=== PATIENT | male | born 1940 | race Caucasian/White ===

== ENCOUNTER 2017-03-04 12:29 | Inpatient (IN) | payer MEDICARE, BC ==
[2017-03-04] MEDS ORDERED: Ondansetron 4 MG Tab.DIS PO PRN (15:32)
[2017-03-04] MEDS ORDERED: Sodium Chloride 0.9% 10 ML Syringe FLUSH PRN (15:32)
[2017-03-04] MEDS ORDERED: Morphine 2 MG/ML Syringe IVPUSH PRN (15:32)
[2017-03-04] MEDS ORDERED: Nitroglycerin 0.4 MG Tab.SL SL PRN (15:40)
[2017-03-04] MEDS ORDERED: Clopidogrel 75 MG Tab PO ONE (15:40)
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
[2017-03-04] MEDS: Lactated Ringers 1,000 ML IV SCH (16:35)
[2017-03-04] MEDS: Isosorbide Mononitrate 30 MG Tab.ER PO SCH (16:35)
[2017-03-04] MEDS: Insulin Aspart 100 Units/ML 3 ML Pen SUBCUT SCH (18:37)
[2017-03-04] MEDS ORDERED: Latanoprost 0.005% Ophth Soln 2.5 ML Bottle EYEBOTH SCH (21:00)
[2017-03-04] MEDS: levETIRAcetam 500 MG Tab PO SCH (21:13)
[2017-03-04] MEDS: Sodium Chloride 5% Ophth Soln 15 ML Bottle EYEBOTH SCH ×2 (21:13→21:21)
[2017-03-04] MEDS: Erythromycin Base 0.5% Ophth Oint 3.5 GM Tube EYEBOTH SCH (21:13)
[2017-03-04] MEDS: LORazepam 2 MG/ML MDV IVPUSH PRN (23:02)
--- NOTE | 2017-03-05 00:07 | ER ---
DATE SEEN: 03/04/2017 After final discussion with the family and his , she felt very strongly that she did not want him to go to [place] to have his stent, cardiovascular workup, or angiography performed. The patient is to be hospitalize here. Status discussed with Dr. Bahena again after she had made a brief decision to send to [place] and she feels comfortable, she and her four children had a long discussion about plans and what should be done with Mr. Whitney should he have deteriorations in his health. They all agreed that he is a poor quality of life and there would be nothing that could be added to his quality of life by performing other procedures. The patient's feels comfortable with this decision. The patient will be admitted. The patient's status discussed with Dr. Bahena. The patient will be placed on telemetry, will not be going to intensive care. Dr. Bahena to write orders. /[id number] ARIADNE/INES
[2017-03-05] MEDS: Lactated Ringers 1,000 ML IV SCH ×3 (00:44→22:16)
[2017-03-05] MEDS: LORazepam 2 MG/ML MDV IVPUSH PRN (01:47)
--- NOTE | 2017-03-05 08:38 | PCM.PN ---
- General Info Date of Service: 03/05/17 Admission Dx/Problem (Free Text): Patient does not communicate well. His states he was agitated last night and the medication I gave him made him hallucinate. He did not rest well according to the . No chest pain or shortness of breath but can be elicited by the . - Patient Data Vitals - most recent: Last Vital Signs Temp 99.5 F 03/05/17 03:00 Pulse 79 03/05/17 03:00 Resp 20 03/05/17 03:00 BP 137/69 03/05/17 03:00 Pulse Ox 95 03/05/17 03:00 Weight - most recent: 186 lb 9.6 oz I&O - last 24 hours: Intake & Output 03/04/17 03/05/17 03/05/17 22:59 06:59 14:59 Intake Total 1320 1096 Balance 1320 1096 Lab Results last 24 hrs: Laboratory Results - last 24 hr 03/04/17 03/04/17 03/04/17 Range/Units 18:32 21:00 21:08 WBC (4.5-12.0) X10-3/uL RBC (4.30-5.75) x10(6)uL Hgb (11.5-15.5) g/dL Hct (30.0-51.3) % MCV (80-96) fL MCH (27.7-33.6) pg MCHC (32.2-35.4) g/dL RDW (11.5-15.5) % Plt Count (125-369) X10(3)uL MPV (7.4-10.4) fL Neut % (Auto) (46-82) % Lymph % (Auto) (13-37) % [place] % (Auto) (4-12) % Eos % (Auto) (1.0-5.0) % Baso % (Auto) (0-2) % Neut # (Auto) (1.6-8.3) # Lymph # (Auto) (0.6-5.0) # [place] # (Auto) (0.0-1.3) # Eos # (Auto) (0.0-0.8) # Baso # (Auto) (0.0-0.2) # Sodium (135-145) mmol/L Potassium (3.5-5.3) mmol/L Chloride (100-110) mmol/L Carbon Dioxide (23-29) mmol/L BUN (8-23) mg/dL Creatinine (0.6-1.3) mg/dL Est Cr Clr Drug Dosing Estimated GFR (MDRD) (>60) BUN/Creatinine Ratio (9-20) Glucose (80-116) mg/dL POC Glucose 207 H D 260 H (80-116) mg/dL Calcium (8.6-10.2) mg/dL Total Bilirubin (0.1-1.3) mg/dL AST (5-27) IU/L ALT (14-26) IU/L Alkaline Phosphatase (56-112) IU/L Troponin I 13.12 H* (0.02-0.06) NG/ML Total Protein (6.0-8.0) g/dL Albumin (3.2-4.6) g/dL Globulin g/dL Albumin/Globulin Ratio 03/05/17 03/05/17 03/05/17 Range/Units 06:35 06:35 06:35 WBC 10.8 (4.5-12.0) X10-3/uL RBC 4.21 L (4.30-5.75) x10(6)uL Hgb 12.4 (11.5-15.5) g/dL Hct 36.8 (30.0-51.3) % MCV 87.4 (80-96) fL MCH 29.5 (27.7-33.6) pg MCHC 33.7 (32.2-35.4) g/dL RDW 11.9 (11.5-15.5) % Plt Count 177 (125-369) X10(3)uL MPV 9.6 (7.4-10.4) fL Neut % (Auto) 71.9 (46-82) % Lymph % (Auto) 15.9 (13-37) % [place] % (Auto) 11.0 (4-12) % Eos % (Auto) 1 (1.0-5.0) % Baso % (Auto) 0 (0-2) % Neut # (Auto) 7.8 (1.6-8.3) # Lymph # (Auto) 1.7 (0.6-5.0) # Rad[place] # (Auto) 1.2 (0.0-1.3) # Eos # (Auto) 0.1 (0.0-0.8) # Baso # (Auto) 0.0 (0.0-0.2) # Sodium 136 (135-145) mmol/L Potassium 3.7 (3.5-5.3) mmol/L Chloride 103 (100-110) mmol/L Carbon Dioxide 28 (23-29) mmol/L BUN 18 (8-23) mg/dL Creatinine 0.8 (0.6-1.3) mg/dL Est Cr Clr Drug Dosing TNP Estimated GFR (MDRD) > 60 (>60) BUN/Creatinine Ratio 22.5 H (9-20) Glucose 199 H (80-116) mg/dL POC Glucose (80-116) mg/dL Calcium 8.2 L (8.6-10.2) mg/dL Total Bilirubin 1.2 (0.1-1.3) mg/dL AST 37 H D (5-27) IU/L ALT 16 D (14-26) IU/L Alkaline Phosphatase 58 (56-112) IU/L Troponin I 11.62 H* (0.02-0.06) NG/ML Total Protein 6.0 (6.0-8.0) g/dL Albumin 3.2 (3.2-4.6) g/dL Globulin 2.8 g/dL Albumin/Globulin Ratio 1.1 //17 Range/Units 06:56 WBC (4.5-12.0) X10-3/uL RBC (4.30-5.75) x10(6)uL Hgb (11.5-15.5) g/dL Hct (30.0-51.3) % MCV (80-96) fL MCH (27.7-33.6) pg MCHC (32.2-35.4) g/dL RDW (11.5-15.5) % Plt Count (125-369) X10(3)uL MPV (7.4-10.4) fL Neut % (Auto) (46-82) % Lymph % (Auto) (13-37) % [place] % (Auto) (4-12) % Eos % (Auto) (1.0-5.0) % Baso % (Auto) (0-2) % Neut # (Auto) (1.6-8.3) # Lymph # (Auto) (0.6-5.0) # [place] # (Auto) (0.0-1.3) # Eos # (Auto) (0.0-0.8) # Baso # (Auto) (0.0-0.2) # Sodium (135-145) mmol/L Potassium (3.5-5.3) mmol/L Chloride (100-110) mmol/L Carbon Dioxide (23-29) mmol/L BUN (8-23) mg/dL Creatinine (0.6-1.3) mg/dL Est Cr Clr Drug Dosing Estimated GFR (MDRD) (>60) BUN/Creatinine Ratio (9-20) Glucose (80-116) mg/dL POC Glucose 179 H D (80-116) mg/dL Calcium (8.6-10.2) mg/dL Total Bilirubin (0.1-1.3) mg/dL AST (5-27) IU/L ALT (14-26) IU/L Alkaline Phosphatase (56-112) IU/L Troponin I (0.02-0.06) NG/ML Total Protein (6.0-8.0) g/dL Albumin (3.2-4.6) g/dL Globulin g/dL Albumin/Globulin Ratio Med Orders - Current: Current Medications Cholecalciferol (Vitamin D3) 2,000 units PO DAILY [facility] Clopidogrel Bisulfate (Plavix) 75 mg PO DAILY [facility] Erythromycin (Erythromycin 0.5% Ophth Oint) 0 gm EYEBOTH BEDTIME [facility] Last Admin: 03/04/17 21:13 Dose: 3.5 gm Lactated Ringer's (Ringers, Lactated) 1,000 mls @ 125 mls/hr IV ASDIRECTED [facility] Last Admin: 03/05/17 00:44 Dose: 125 mls/hr Insulin Aspart (Novolog) 0 unit SUBCUT TIDMEALS [facility] PRN Reason: Protocol Last Admin: 03/04/17 18:37 Dose: 4 units Insulin Aspart (Novolog) 8 unit SUBCUT TIDAC [facility] Isosorbide Mononitrate (Imdur) 30 mg PO DAILY [facility] Last Admin: 03/04/17 16:35 Dose: 30 mg Latanoprost (Xalatan 0.005% Ophth Soln) 0 ml EYEBOTH BEDTIME [facility] Levetiracetam (Keppra) 500 mg PO BID [facility] Last Admin: 03/04/17 21:13 Dose: 500 mg Lorazepam (Ativan) 0.5 mg IVPUSH Q2H PRN PRN Reason: Allergies Last Admin: 03/05/17 01:47 Dose: 0.5 mg Losartan Potassium (Cozaar) 100 mg PO DAILY [facility] Melatonin (Melatonin) 6 mg PO BEDTIME [facility] Morphine Sulfate (Morphine) 2 mg IVPUSH Q2H PRN PRN Reason: Pain (severe 7-10) Last Admin: 03/05/17 07:56 Dose: 2 mg Ondansetron HCl (Zofran Odt) 4 mg PO Q4H PRN PRN Reason: nausea, able to take PO Sodium Chloride (Saline Flush) 10 ml FLUSH ASDIRECTED PRN PRN Reason: Keep Vein Open Sodium Chloride (Adair 128 5% Ophth Soln) 0 ml EYEBOTH TID [facility] Last Admin: 03/04/17 21:21 Dose: Not Given Spironolactone (Aldactone) 25 mg PO DAILY [facility] Discontinued Medications Clopidogrel Bisulfate (Plavix) 300 mg PO ONETIME ONE Stop: 03/04/17 15:41 Last Admin: 03/04/17 16:34 Dose: 300 mg Latanoprost (Xalatan 0.005% Ophth Soln) 0 ml EYEBOTH BEDTIME [facility] Last Admin: 03/04/17 21:14 Dose: 1 drop Nitroglycerin (Nitrostat) 0.4 mg SL Q5M PRN PRN Reason: Chest Pain Stop: 03/04/17 15:51 - Exam General: alert, cooperative. No: oriented, no acute distress Lungs: Clear to auscultation, Normal respiratory effort. No: Crackles, Rales, Rhonchi Cardiovascular: Regular Rate, Regular Rhythm, Murmurs Extremities: no edema Psy/Mental Status: alert - Problem List & Annotations (1) STEMI (ST elevation myocardial infarction) SNOMED Code(s): 672538379 Code(s): I21.3 - ST ELEVATION (STEMI) MYOCARDIAL INFARCTION OF [facility] SITE Status: Acute Current Visit: Yes Qualifiers: Involved coronary artery: unspecified coronary artery Qualified Code(s): I21.3 - ST elevation (STEMI) myocardial infarction of unspecified site (2) Palliative care status SNOMED Code(s): 541169262 Code(s): Z51.5 - ENCOUNTER FOR PALLIATIVE CARE Status: Acute Current Visit: Yes (3) Seizure SNOMED Code(s): 97937242 Code(s): R56.9 - UNSPECIFIED CONVULSIONS Status: Acute Current Visit: No Annotation/Comment:: Started Keppra 500mg po bid on 08/04/16. For outpt FU with his Neurologist. For EEG as an outpt. (4) Dementia SNOMED Code(s): 55907614 Code(s): F03.90 - UNSPECIFIED DEMENTIA WITHOUT BEHAVIORAL DISTURBANCE Status: Chronic Current Visit: No Qualifiers: Dementia type: Alzheimer's disease Alzheimer's disease onset: late-onset Dementia behavioral disturbance: without behavioral disturbance Qualified Code (s): G30.1 - Alzheimer's disease with late onset; F02.80 - Dementia in other diseases classified elsewhere without behavioral disturbance Annotation/Comment:: Not on any medications. (5) Type 2 diabetes mellitus SNOMED Code(s): 34925440 Code(s): E11.9 - TYPE 2 DIABETES MELLITUS WITHOUT COMPLICATIONS Status: Chronic Current Visit: No Qualifiers: Diabetes mellitus complication status: without complication Diabetes mellitus terminal manager insulin use: with terminal manager use Qualified Code(s): E11.9 - Type 2 diabetes mellitus without complications; Z79.4 - exterminator helper termite (current) use of insulin Annotation/Comment:: HbA1C was 9.1% on 08/04/16. Continue Insulin Aspart pre- meals and Detemir. Continue diabetic diet. - Problem List Review Problem List Initiated/Reviewed/Updated: Yes - My Orders Last 24 Hours: My Active Orders 03/04/17 15:32 Patient Status [ADT] Routine Bedrest Bedside Commode [RC] ASDIRECTED Blood Glucose Check, Bedside [RC] 08,12,17,21 Oxygen Therapy [RC] PRN Up With Assistance [RC] ASDIRECTED VTE/DVT Education [RC] Per Unit Routine Vital Signs [RC] Q4H OT Evaluation and Treatment [CONS] Routine PT Evaluation and Treatment [CONS] Routine Morphine 2 mg IVPUSH Q2H PRN Ondansetron [Zofran ODT] 4 mg PO Q4H PRN Sodium Chloride 0.9% [Saline Flush] 10 ml FLUSH ASDIRECTED PRN Peripheral IV Insertion Adult [OM.PC] Routine Resuscitation Status Routine 03/04/17 15:34 Cardiac Monitoring [RC] 08,16,00 Sequential Compression Device [OM.PC] Per Unit Routine 03/04/17 15:45 Isosorbide Mononitrate [Imdur] 30 mg PO DAILY Lactated Ringers [Ringers, Lactated] 1,000 ml IV ASDIRECTED 03/04/17 18:00 Insulin Aspart [NovoLOG] See Protocol SUBCUT TIDMEALS 03/04/17 20:00 EKG 12 Lead [EK] Routine 03/04/17 21:00 Erythromycin Base [Erythromycin 0.5% Ophth Oint] 0 gm EYEBOTH BEDTIME Sodium Chloride 5% [Adair 128 5% Ophth Soln] 0 ml EYEBOTH TID levETIRAcetam [Keppra] 500 mg PO BID 03/04/17 Dinner Clear Liquid Diet [DIET] 03/05/17 06:00 EKG 12 Lead [EK] Routine 03/05/17 07:42 Latanoprost [Xalatan 0.005% Ophth Soln] 0 ml EYEBOTH BEDTIME 03/05/17 09:00 Cholecalciferol (Vitamin D3) [Vitamin D3] 2,000 units PO DAILY Losartan [Cozaar] 100 mg PO DAILY Spironolactone [Aldactone] 25 mg PO DAILY - Plan Plan:: 1. Stop Ativan and use it again due to agitation hallucinations. 2. Melatonin at at bedtime and then Remeron daily at bedtime when necessary if the melatonin doesn't work. 3. PT/OT ordered. Discussed this with the . 4. Start a beta noelle today. 5. would like to hold the spironolactone and see if his legs swell up. 6. states that his regular doctor as talked about hospice in the past. She would like a hospice consult. 7. Troponin and EKG in a.m. 8. Continue telemetry. 9. Stop clear liquids and advance to regular diet.
[2017-03-05] MEDS ORDERED: Mirtazapine 15 MG Tab PO PRN (08:40)
[2017-03-05] MEDS ORDERED: Spironolactone 25 MG Tab PO SCH (09:00)
[2017-03-05] MEDS ORDERED: traMADol 50 MG Tab PO PRN (09:43)
[2017-03-05] MEDS: Clopidogrel 75 MG Tab PO SCH (09:49)
[2017-03-05] MEDS: levETIRAcetam 500 MG Tab PO SCH ×2 (09:49→21:07)
[2017-03-05] MEDS: Isosorbide Mononitrate 30 MG Tab.ER PO SCH (09:49)
[2017-03-05] MEDS: Cholecalciferol (Vitamin D3) 1,000 Unit Tab PO SCH (09:49)
[2017-03-05] MEDS: Metoprolol Tartrate 25 MG Tab PO SCH ×2 (09:50→21:09)
[2017-03-05] MEDS: Losartan 100 MG Tab PO SCH (09:50)
[2017-03-05] MEDS: Insulin Aspart 100 Units/ML 3 ML Pen SUBCUT SCH ×5 (09:50→17:17)
[2017-03-05] MEDS: Sodium Chloride 5% Ophth Soln 15 ML Bottle EYEBOTH SCH (09:57)
--- NOTE | 2017-03-05 10:35 | CR ---
INDICATION: Trauma. RIGHT KNEE: Three views of the right knee revealed mild hypertrophic degenerative changes at the intercondylar spines and patellofemoral joint. There is also narrowing of the medial femorotibial joint space of moderate to moderately severe degree. A definite fracture or dislocation or joint effusion was not identified. Arterial calcifications are noted in the posterior arteries. IMPRESSION: 1. Osteoarthritis, medial femorotibial joint space narrowing. 2. ASD. 3. No acute fracture or dislocation. MTDD
[2017-03-05] MEDS ORDERED: Melatonin 3 MG Tab PO SCH (21:00)
[2017-03-05] MEDS: Melatonin 3 MG Tab PO SCH (21:07)
[2017-03-05] MEDS: Erythromycin Base 0.5% Ophth Oint 3.5 GM Tube EYEBOTH SCH (21:08)
[2017-03-05] MEDS: Latanoprost 0.005% Ophth Soln 2.5 ML Bottle EYEBOTH SCH (21:09)
[2017-03-06] MEDS: Insulin Aspart 100 Units/ML 3 ML Pen SUBCUT SCH ×3 (08:13→17:59)
[2017-03-06] MEDS: Metoprolol Tartrate 25 MG Tab PO SCH ×2 (08:21→21:27)
[2017-03-06] MEDS: Clopidogrel 75 MG Tab PO SCH (08:21)
[2017-03-06] MEDS: Losartan 100 MG Tab PO SCH (08:21)
[2017-03-06] MEDS: levETIRAcetam 500 MG Tab PO SCH ×2 (08:21→21:28)
[2017-03-06] MEDS: Cholecalciferol (Vitamin D3) 1,000 Unit Tab PO SCH (08:21)
--- NOTE | 2017-03-06 08:21 | PCM.PN ---
- General Info Date of Service: 03/06/17 Admission Dx/Problem (Free Text): Patient very sleepy this morning. He wakes up and asked if these any pain. He shakes his head no. He has a history dementia and does not speak much. His is not here this a.m. as of yet. So I'm not able to get any further history. - Patient Data Vitals - most recent: Last Vital Signs Temp 99.3 F 03/06/17 00:05 Pulse 75 03/06/17 04:20 Resp 18 03/06/17 04:20 BP 130/69 03/06/17 04:20 Pulse Ox 93 L 03/06/17 04:20 Weight - most recent: 186 lb 9.6 oz I&O - last 24 hours: Intake & Output 03/05/17 03/06/17 03/06/17 22:59 06:59 14:59 Intake Total 104 636 Balance 104 636 Lab Results last 24 hrs: Laboratory Results - last 24 hr 03/05/17 03/05/17 03/05/17 Range/Units 11:40 13:02 17:15 POC Glucose 207 H 196 H 113 D (80-116) mg/dL Troponin I (0.02-0.06) NG/ML 03/05/17 03/06/17 Range/Units 21:04 06:30 POC Glucose 118 H (80-116) mg/dL Troponin I 5.24 H* (0.02-0.06) NG/ML Med Orders - Current: Current Medications Cholecalciferol (Vitamin D3) 2,000 units PO DAILY [facility] Last Admin: 03/05/17 09:49 Dose: 2,000 units Clopidogrel Bisulfate (Plavix) 75 mg PO DAILY [facility] Last Admin: 03/05/17 09:49 Dose: 75 mg Erythromycin (Erythromycin 0.5% Ophth Oint) 0 gm EYEBOTH BEDTIME [facility] Last Admin: 03/05/17 21:08 Dose: 1 applic Lactated Ringer's (Ringers, Lactated) 1,000 mls @ 75 mls/hr IV ASDIRECTED [facility] Last Admin: 03/05/17 22:16 Dose: 75 mls/hr Insulin Aspart (Novolog) 0 unit SUBCUT TIDMEALS [facility] PRN Reason: Protocol Last Admin: 03/06/17 08:13 Dose: 2 units Isosorbide Mononitrate (Imdur) 30 mg PO DAILY [facility] Last Admin: 03/05/17 09:49 Dose: 30 mg Latanoprost (Xalatan 0.005% Ophth Soln) 0 ml EYEBOTH BEDTIME [facility] Last Admin: 03/05/17 21:09 Dose: 1 drop Levetiracetam (Keppra) 500 mg PO BID [facility] Last Admin: 03/05/17 21:07 Dose: 500 mg Losartan Potassium (Cozaar) 100 mg PO DAILY [facility] Last Admin: 03/05/17 09:50 Dose: 100 mg Melatonin (Melatonin) 9 mg PO BEDTIME [facility] Last Admin: 03/05/17 21:07 Dose: 9 mg Metoprolol Tartrate (Lopressor) 12.5 mg PO Q12H [facility] Last Admin: 03/05/17 21:09 Dose: 12.5 mg Mirtazapine (Remeron) 7.5 mg PO BEDTIME PRN PRN Reason: Insomnia Morphine Sulfate (Morphine) 2 mg IVPUSH Q2H PRN PRN Reason: Pain (severe 7-10) Last Admin: 03/05/17 07:56 Dose: 2 mg Sodium Chloride (Saline Flush) 10 ml FLUSH ASDIRECTED PRN PRN Reason: Keep Vein Open Tramadol HCl (Ultram) 50 mg PO Q4H PRN PRN Reason: Pain Last Admin: 03/05/17 10:12 Dose: 50 mg Discontinued Medications Clopidogrel Bisulfate (Plavix) 300 mg PO ONETIME ONE Stop: 03/04/17 15:41 Last Admin: 03/04/17 16:34 Dose: 300 mg Insulin Aspart (Novolog) 8 unit SUBCUT TIDAC [facility] Last Admin: 03/05/17 12:46 Dose: Not Given Latanoprost (Xalatan 0.005% Ophth Soln) 0 ml EYEBOTH BEDTIME [facility] Last Admin: 03/04/17 21:14 Dose: 1 drop Lorazepam (Ativan) 0.5 mg IVPUSH Q2H PRN PRN Reason: Allergies Last Admin: 03/05/17 01:47 Dose: 0.5 mg Melatonin (Melatonin) 6 mg PO BEDTIME [facility] Nitroglycerin (Nitrostat) 0.4 mg SL Q5M PRN PRN Reason: Chest Pain Stop: 03/04/17 15:51 Ondansetron HCl (Zofran Odt) 4 mg PO Q4H PRN PRN Reason: nausea, able to take PO Sodium Chloride ([place] 128 5% Ophth Soln) 0 ml EYEBOTH TID [facility] Last Admin: 03/05/17 09:57 Dose: Not Given Spironolactone (Aldactone) 25 mg PO DAILY [facility] - Exam General: alert, cooperative. No: oriented Lungs: Clear to auscultation, Normal respiratory effort Cardiovascular: Regular Rate, Regular Rhythm - Problem List & Annotations (1) STEMI (ST elevation myocardial infarction) SNOMED Code(s): 100225482 Code(s): I21.3 - ST ELEVATION (STEMI) MYOCARDIAL INFARCTION OF UNSP SITE Status: Acute Current Visit: Yes Qualifiers: Involved coronary artery: unspecified coronary artery Qualified Code(s): I21.3 - ST elevation (STEMI) myocardial infarction of unspecified site (2) Palliative care status SNOMED Code(s): 096578274 Code(s): Z51.5 - ENCOUNTER FOR PALLIATIVE CARE Status: Acute Current Visit: Yes (3) Seizure SNOMED Code(s): 04505472 Code(s): R56.9 - UNSPECIFIED CONVULSIONS Status: Acute Current Visit: No Annotation/Comment:: Started Keppra 500mg po bid on 08/04/16. For outpt FU with his Neurologist. For EEG as an outpt. (4) Dementia SNOMED Code(s): 29899487 Code(s): F03.90 - UNSPECIFIED DEMENTIA WITHOUT BEHAVIORAL DISTURBANCE Status: Chronic Current Visit: No Qualifiers: Dementia type: Alzheimer's disease Alzheimer's disease onset: late-onset Dementia behavioral disturbance: without behavioral disturbance Qualified Code (s): G30.1 - Alzheimer's disease with late onset; F02.80 - Dementia in other diseases classified elsewhere without behavioral disturbance Annotation/Comment:: Not on any medications. (5) Type 2 diabetes mellitus SNOMED Code(s): 03800244 Code(s): E11.9 - TYPE 2 DIABETES MELLITUS WITHOUT COMPLICATIONS Status: Chronic Current Visit: No Qualifiers: Diabetes mellitus complication status: without complication Diabetes mellitus fpc insulin use: with terminal gauger use Qualified Code(s): E11.9 - Type 2 diabetes mellitus without complications; Z79.4 - terminal block assembler (current) use of insulin Annotation/Comment:: HbA1C was 9.1% on 08/04/16. Continue Insulin Aspart pre- meals and Detemir. Continue diabetic diet. - Problem List Review Problem List Initiated/Reviewed/Updated: Yes - My Orders Last 24 Hours: My Active Orders 03/05/17 07:42 Latanoprost [Xalatan 0.005% Ophth Soln] 0 ml EYEBOTH BEDTIME 03/05/17 08:40 Mirtazapine [Remeron] 7.5 mg PO BEDTIME PRN 03/05/17 08:41 Consult to Hospice [CONS] Routine 03/05/17 08:45 Metoprolol Tartrate [Lopressor] 12.5 mg PO Q12H 03/05/17 09:00 Cholecalciferol (Vitamin D3) [Vitamin D3] 2,000 units PO DAILY Losartan [Cozaar] 100 mg PO DAILY 03/05/17 09:03 EKG Documentation Completion [RC] 0530 03/05/17 09:43 traMADol [Ultram] 50 mg PO Q4H PRN 03/05/17 21:00 Melatonin 9 mg PO BEDTIME 03/05/17 Lunch Consistent Carbohydrate Diet [DIET] 03/06/17 05:11 EKG 12 Lead [EK] AM 03/06/17 09:00 Enoxaparin [Lovenox] 40 mg SUBCUT DAILY - Plan Plan:: 1. PT/OT to start getting this patient up. 2. Okay to get him up in the chair. 3. Start Lovenox and SCDs. 4. Hospice consult today. 5. Monitor by mouth intake. When he starts doing well we'll back off on IV fluids.
[2017-03-06] MEDS: Isosorbide Mononitrate 30 MG Tab.ER PO SCH (08:22)
[2017-03-06] MEDS: Enoxaparin 40 MG/0.4 ML Syringe SUBCUT SCH (09:33)
[2017-03-06] MEDS: Erythromycin Base 0.5% Ophth Oint 3.5 GM Tube EYEBOTH SCH (21:27)
[2017-03-06] MEDS: Latanoprost 0.005% Ophth Soln 2.5 ML Bottle EYEBOTH SCH (21:28)
[2017-03-06] MEDS: Melatonin 3 MG Tab PO SCH (21:28)
[2017-03-07] MEDS: levETIRAcetam 500 MG Tab PO SCH ×2 (08:22→20:34)
[2017-03-07] MEDS: Losartan 100 MG Tab PO SCH (08:22)
[2017-03-07] MEDS: Isosorbide Mononitrate 30 MG Tab.ER PO SCH (08:22)
[2017-03-07] MEDS: Cholecalciferol (Vitamin D3) 1,000 Unit Tab PO SCH (08:23)
[2017-03-07] MEDS: Enoxaparin 40 MG/0.4 ML Syringe SUBCUT SCH (08:23)
[2017-03-07] MEDS: Clopidogrel 75 MG Tab PO SCH (08:23)
[2017-03-07] MEDS: Insulin Aspart 100 Units/ML 3 ML Pen SUBCUT SCH ×2 (08:26→17:55)
[2017-03-07] MEDS ORDERED: Enoxaparin 40 MG/0.4 ML Syringe SUBCUT SCH (08:56)
--- NOTE | 2017-03-07 09:01 | PCM.PN ---
- General Info Date of Service: 03/07/17 - Patient Data Vitals - most recent: Last Vital Signs Temp 95.1 F L 03/07/17 08:15 Pulse 72 03/07/17 04:00 Resp 16 03/07/17 08:15 BP 167/85 H 03/07/17 08:22 Pulse Ox 95 03/07/17 08:15 Weight - most recent: 186 lb 9.6 oz Lab Results last 24 hrs: Laboratory Results - last 24 hr 03/06/17 03/06/17 03/06/17 Range/Units 08:02 12:04 17:54 POC Glucose 152 H 270 H D 227 H (80-116) mg/dL 03/06/17 03/07/17 Range/Units 21:24 08:18 POC Glucose 287 H 217 H (80-116) mg/dL Med Orders - Current: Current Medications Cholecalciferol (Vitamin D3) 2,000 units PO DAILY [facility] Last Admin: 03/07/17 08:23 Dose: 2,000 units Clopidogrel Bisulfate (Plavix) 75 mg PO DAILY [facility] Last Admin: 03/07/17 08:23 Dose: 75 mg Enoxaparin Sodium (Lovenox) 30 mg SUBCUT DAILY [facility] Erythromycin (Erythromycin 0.5% Ophth Oint) 0 gm EYEBOTH BEDTIME [facility] Last Admin: 03/06/17 21:27 Dose: 1 applic Latanoprost (Xalatan 0.005% Ophth Soln) 0 ml EYEBOTH BEDTIME [facility] Last Admin: 03/06/17 21:28 Dose: 1 drop Levetiracetam (Keppra) 500 mg PO BID [facility] Last Admin: 03/07/17 08:22 Dose: 500 mg Losartan Potassium (Cozaar) 100 mg PO DAILY [facility] Last Admin: 03/07/17 08:22 Dose: 100 mg Melatonin (Melatonin) 5 mg PO BEDTIME [facility] Metoprolol Tartrate (Lopressor) 25 mg PO Q12H [facility] Tramadol HCl (Ultram) 50 mg PO Q4H PRN PRN Reason: Pain Last Admin: 03/05/17 10:12 Dose: 50 mg Discontinued Medications Clopidogrel Bisulfate (Plavix) 300 mg PO ONETIME ONE Stop: 03/04/17 15:41 Last Admin: 03/04/17 16:34 Dose: 300 mg Enoxaparin Sodium (Lovenox) 40 mg SUBCUT DAILY [facility] Last Admin: 03/07/17 08:23 Dose: 40 mg Lactated Ringer's (Ringers, Lactated) 1,000 mls @ 75 mls/hr IV ASDIRECTED [facility] Last Admin: 03/05/17 22:16 Dose: 75 mls/hr Insulin Aspart (Novolog) 0 unit SUBCUT TIDMEALS [facility] PRN Reason: Protocol Last Admin: 03/07/17 08:26 Dose: 4 units Insulin Aspart (Novolog) 8 unit SUBCUT TIDAC [facility] Last Admin: 03/05/17 12:46 Dose: Not Given Isosorbide Mononitrate (Imdur) 30 mg PO DAILY [facility] Last Admin: 03/07/17 08:22 Dose: 30 mg Latanoprost (Xalatan 0.005% Ophth Soln) 0 ml EYEBOTH BEDTIME [facility] Last Admin: 03/04/17 21:14 Dose: 1 drop Lorazepam (Ativan) 0.5 mg IVPUSH Q2H PRN PRN Reason: Allergies Last Admin: 03/05/17 01:47 Dose: 0.5 mg Melatonin (Melatonin) 6 mg PO BEDTIME [facility] Melatonin (Melatonin) 9 mg PO BEDTIME [facility] Last Admin: 03/06/17 21:28 Dose: 9 mg Metoprolol Tartrate (Lopressor) 12.5 mg PO Q12H [facility] Last Admin: 03/06/17 21:27 Dose: 12.5 mg Mirtazapine (Remeron) 7.5 mg PO BEDTIME PRN PRN Reason: Insomnia Morphine Sulfate (Morphine) 2 mg IVPUSH Q2H PRN PRN Reason: Pain (severe 7-10) Last Admin: 03/05/17 07:56 Dose: 2 mg Nitroglycerin (Nitrostat) 0.4 mg SL Q5M PRN PRN Reason: Chest Pain Stop: 03/04/17 15:51 Ondansetron HCl (Zofran Odt) 4 mg PO Q4H PRN PRN Reason: nausea, able to take PO Sodium Chloride (Saline Flush) 10 ml FLUSH ASDIRECTED PRN PRN Reason: Keep Vein Open Sodium Chloride ([place]air 128 5% Ophth Soln) 0 ml EYEBOTH TID [facility] Last Admin: 03/05/17 09:57 Dose: Not Given Spironolactone (Aldactone) 25 mg PO DAILY [facility] - Problem List & Annotations (1) STEMI (ST elevation myocardial infarction) SNOMED Code(s): 411156136 Code(s): I21.3 - ST ELEVATION (STEMI) MYOCARDIAL INFARCTION OF UNSP SITE Status: Acute Current Visit: Yes Qualifiers: Involved coronary artery: unspecified coronary artery Qualified Code(s): I21.3 - ST elevation (STEMI) myocardial infarction of unspecified site (2) Palliative care status SNOMED Code(s): 946553037 Code(s): Z51.5 - ENCOUNTER FOR PALLIATIVE CARE Status: Acute Current Visit: Yes (3) Seizure SNOMED Code(s): 36400154 Code(s): R56.9 - UNSPECIFIED CONVULSIONS Status: Acute Current Visit: No Annotation/Comment:: Started Keppra 500mg po bid on 08/04/16. For outpt FU with his Neurologist. For EEG as an outpt. (4) Dementia SNOMED Code(s): 74136736 Code(s): F03.90 - UNSPECIFIED DEMENTIA WITHOUT BEHAVIORAL DISTURBANCE Status: Chronic Current Visit: No Qualifiers: Dementia type: Alzheimer's disease Alzheimer's disease onset: late-onset Dementia behavioral disturbance: without behavioral disturbance Qualified Code (s): G30.1 - Alzheimer's disease with late onset; F02.80 - Dementia in other diseases classified elsewhere without behavioral disturbance Annotation/Comment:: Not on any medications. (5) Type 2 diabetes mellitus SNOMED Code(s): 42446494 Code(s): E11.9 - TYPE 2 DIABETES MELLITUS WITHOUT COMPLICATIONS Status: Chronic Current Visit: No Qualifiers: Diabetes mellitus complication status: without complication Diabetes mellitus terminal press operator insulin use: with terminal press operator use Qualified Code(s): E11.9 - Type 2 diabetes mellitus without complications; Z79.4 - prison (current) use of insulin Annotation/Comment:: HbA1C was 9.1% on 08/04/16. Continue Insulin Aspart pre- meals and Detemir. Continue diabetic diet. - Problem List Review Problem List Initiated/Reviewed/Updated: Yes - My Orders Last 24 Hours: My Active Orders 03/06/17 08:21 SCD [Sequential Compression Device] [OM.PC] Routine 03/06/17 13:45 Convert IV to Saline Lock [OM.PC] Routine 03/07/17 08:56 Enoxaparin [Lovenox] 30 mg SUBCUT DAILY Convert IV to Saline Lock [OM.PC] Routine 03/07/17 08:57 Melatonin 5 mg PO BEDTIME Metoprolol Tartrate [Lopressor] 25 mg PO Q12H 03/07/17 08:58 Accu Check [Blood Glucose Check, Bedside] [RC] BIDAC 03/07/17 21:00 Insulin Glarg,Human.Rec.Analog [LantUS Solostar] 25 units SUBCUT BEDTIME - Plan Plan:: 1. DC Imdur 2. saline lock IV. 3. Increase metoprolol tartrate 25 mg twice a day. 4. Accu-Cheks twice a day. Stop insulin sliding scale. Restart patient's home Lantus at 25 units at at bedtime. Continue ADA diet 5. Vitals every shift. 6. Assess for possible swing bed.
[2017-03-07] MEDS: Metoprolol Tartrate 25 MG Tab PO SCH ×3 (09:36→20:34)
[2017-03-07] MEDS: Erythromycin Base 0.5% Ophth Oint 3.5 GM Tube EYEBOTH SCH (20:33)
[2017-03-07] MEDS: Latanoprost 0.005% Ophth Soln 2.5 ML Bottle EYEBOTH SCH (20:37)
[2017-03-07] MEDS ORDERED: Insulin Detemir 100 Units/ML 3 ML Pen SUBCUT SCH (21:00)
--- NOTE | 2017-03-08 07:35 | PCM.PN ---
- General Info Date of Service: 03/08/17 Admission Dx/Problem (Free Text): Patient is tired and sleepy this morning and does not really talk to me goes back to sleep. Discuss his future care with his . She is okay with taking him home. He does not qualify for swing bed. The states that he is eating good and activities but back to normal. His cognition is the same - Patient Data Vitals - most recent: Last Vital Signs Temp 98.8 F 03/08/17 00:00 Pulse 70 03/08/17 00:00 Resp 18 03/08/17 00:00 BP 160/81 H 03/08/17 00:00 Pulse Ox 94 L 03/08/17 00:00 Weight - most recent: 186 lb 9.6 oz Lab Results last 24 hrs: Laboratory Results - last 24 hr 03/07/17 03/07/17 03/08/17 Range/Units 08:18 16:12 06:08 POC Glucose 217 H 319 H D 253 H (80-116) mg/dL Med Orders - Current: Current Medications Cholecalciferol (Vitamin D3) 2,000 units PO DAILY [facility] Last Admin: 03/07/17 08:23 Dose: 2,000 units Clopidogrel Bisulfate (Plavix) 75 mg PO DAILY [facility] Last Admin: 03/07/17 08:23 Dose: 75 mg Enoxaparin Sodium (Lovenox) 40 mg SUBCUT DAILY [facility] Last Admin: 03/07/17 08:23 Dose: 40 mg Erythromycin (Erythromycin 0.5% Ophth Oint) 0 gm EYEBOTH BEDTIME [facility] Last Admin: 03/07/17 20:33 Dose: 1 applic Insulin Aspart (Novolog) 8 unit SUBCUT TIDMEALS [facility] Last Admin: 03/07/17 17:55 Dose: 8 units Insulin Detemir (Levemir) 25 unit SUBCUT BEDTIME [facility] Last Admin: 03/07/17 20:38 Dose: 25 units Latanoprost (Xalatan 0.005% Ophth Soln) 0 ml EYEBOTH BEDTIME [facility] Last Admin: 03/07/17 20:37 Dose: 1 drop Levetiracetam (Keppra) 500 mg PO BID [facility] Last Admin: 03/07/17 20:34 Dose: 500 mg Losartan Potassium (Cozaar) 100 mg PO DAILY [facility] Last Admin: 03/07/17 08:22 Dose: 100 mg Melatonin (Melatonin) 5 mg PO BEDTIME [facility] Last Admin: 03/07/17 20:37 Dose: 5 mg Metoprolol Tartrate (Lopressor) 25 mg PO Q12H [facility] Last Admin: 03/07/17 20:34 Dose: 25 mg Tramadol HCl (Ultram) 50 mg PO Q4H PRN PRN Reason: Pain Last Admin: 03/05/17 10:12 Dose: 50 mg Discontinued Medications Clopidogrel Bisulfate (Plavix) 300 mg PO ONETIME ONE Stop: 03/04/17 15:41 Last Admin: 03/04/17 16:34 Dose: 300 mg Lactated Ringer's (Ringers, Lactated) 1,000 mls @ 75 mls/hr IV ASDIRECTED [facility] Last Admin: 03/05/17 22:16 Dose: 75 mls/hr Insulin Aspart (Novolog) 0 unit SUBCUT TIDMEALS [facility] PRN Reason: Protocol Last Admin: 03/07/17 08:26 Dose: 4 units Insulin Aspart (Novolog) 8 unit SUBCUT TIDAC [facility] Last Admin: 03/05/17 12:46 Dose: Not Given Isosorbide Mononitrate (Imdur) 30 mg PO DAILY [facility] Last Admin: 03/07/17 08:22 Dose: 30 mg Latanoprost (Xalatan 0.005% Oph Soln) 0 ml EYEBOTH BEDTIME [facility] Last Admin: 03/04/17 21:14 Dose: 1 drop Lorazepam (Ativan) 0.5 mg IVPUSH Q2H PRN PRN Reason: Allergies Last Admin: 03/05/17 01:47 Dose: 0.5 mg Melatonin (Melatonin) 6 mg PO BEDTIME [facility] Melatonin (Melatonin) 9 mg PO BEDTIME [facility] Last Admin: 03/06/17 21:28 Dose: 9 mg Metoprolol Tartrate (Lopressor) 12.5 mg PO Q12H [facility] Last Admin: 03/07/17 09:36 Dose: Not Given Mirtazapine (Remeron) 7.5 mg PO BEDTIME PRN PRN Reason: Insomnia Morphine Sulfate (Morphine) 2 mg IVPUSH Q2H PRN PRN Reason: Pain (severe 7-10) Last Admin: 03/05/17 07:56 Dose: 2 mg Nitroglycerin (Nitrostat) 0.4 mg SL Q5M PRN PRN Reason: Chest Pain Stop: 03/04/17 15:51 Ondansetron HCl (Zofran Odt) 4 mg PO Q4H PRN PRN Reason: nausea, able to take PO Sodium Chloride (Saline Flush) 10 ml FLUSH ASDIRECTED PRN PRN Reason: Keep Vein Open Sodium Chloride ([place] 128 5% Ophth Soln) 0 ml EYEBOTH TID [facility] Last Admin: 03/05/17 09:57 Dose: Not Given Spironolactone (Aldactone) 25 mg PO DAILY [facility] - Exam General: other (Sleeping. Wakes up and goes back to sleep) Lungs: Clear to auscultation, Normal respiratory effort Cardiovascular: Regular Rate, Regular Rhythm, Murmurs - Problem List & Annotations (1) STEMI (ST elevation myocardial infarction) SNOMED Code(s): 578749477 Code(s): I21.3 - ST ELEVATION (STEMI) MYOCARDIAL INFARCTION OF UNSP SITE Status: Acute Current Visit: Yes Qualifiers: Involved coronary artery: unspecified coronary artery Qualified Code(s): I21.3 - ST elevation (STEMI) myocardial infarction of unspecified site (2) Palliative care status SNOMED Code(s): 513085824 Code(s): Z51.5 - ENCOUNTER FOR PALLIATIVE CARE Status: Acute Current Visit: Yes (3) Seizure SNOMED Code(s): 73986304 Code(s): R56.9 - UNSPECIFIED CONVULSIONS Status: Acute Current Visit: No Annotation/Comment:: Started Keppra 500mg po bid on 08/04/16. For outpt FU with his Neurologist. For EEG as an outpt. (4) Dementia SNOMED Code(s): 69337723 Code(s): F03.90 - UNSPECIFIED DEMENTIA WITHOUT BEHAVIORAL DISTURBANCE Status: Chronic Current Visit: No Qualifiers: Dementia type: Alzheimer's disease Alzheimer's disease onset: late-onset Dementia behavioral disturbance: without behavioral disturbance Qualified Code (s): G30.1 - Alzheimer's disease with late onset; F02.80 - Dementia in other diseases classified elsewhere without behavioral disturbance Annotation/Comment:: Not on any medications. (5) Type 2 diabetes mellitus SNOMED Code(s): 10532927 Code(s): E11.9 - TYPE 2 DIABETES MELLITUS WITHOUT COMPLICATIONS Status: Chronic Current Visit: No Qualifiers: Diabetes mellitus complication status: without complication Diabetes mellitus skilled nursing insulin use: with skilled nursing use Qualified Code(s): E11.9 - Type 2 diabetes mellitus without complications; Z79.4 - ferry terminal supervisor (current) use of insulin Annotation/Comment:: HbA1C was 9.1% on 08/04/16. Continue Insulin Aspart pre- meals and Detemir. Continue diabetic diet. - Problem List Review Problem List Initiated/Reviewed/Updated: Yes - My Orders Last 24 Hours: My Active Orders 03/07/17 08:56 Convert IV to Saline Lock [OM.PC] Routine 03/07/17 08:58 Accu Check [Blood Glucose Check, Bedside] [RC] BIDAC 03/07/17 09:00 Metoprolol Tartrate [Lopressor] 25 mg PO Q12H 03/07/17 18:00 Insulin Aspart [NovoLOG] 8 unit SUBCUT TIDMEALS 03/07/17 21:00 Insulin Detemir [Levemir] 25 unit SUBCUT BEDTIME Melatonin 5 mg PO BEDTIME - Plan Plan:: 1. Discharge to home on home health. 2. Recheck with Dr. Reid Luis in 7-10 days.
--- NOTE | 2017-03-08 07:43 | PCM.DCSUM1 ---
Discharge Summary - Hospital Course Free Text/Narrative:: Hospital course-patient was admitted here because she did not want transfer to [facility] see cardiology because of his chronic dementia. Patient's troponin was [address] elevation in the anterior leads. His troponin came down nicely the next 3 checks in 8 hours apiece. Patient did sleep well initially but when given melatonin and he slept well. He was put on sliding scale for his diabetes and he was able to eat with his 's assist. Patient had PT/OT. They felt he did not qualify for swing bed. He recovered nicely. He was started on Lovenox when he came in, 300 mg of Plavix 1 and then 75 a day which he normally takes. Aspirin was held because he is allergic. Metoprolol was started at 12.5 twice a day initially his blood pressures elevated to be increased to 25 mg twice a day. His asked to stop the spironolactone which we did. There is no swelling in his legs while he was admitted. This is something to watch in the future. The wants to take him home and does not want him in the assisted. So he'll be discharged home with home health. Hospice was consulted while he was here and the met with them. She thinks that something they will talk about in the near future but hospice will not be involved at this time. Brief History: This is a 76-year-old male patient with severe dementia that lives with his . His assists him with walking because he has problems with balance. She states this morning when he was getting out of bed he was unable to stand up. And she had to gently lower him to the floor. She called the ambulance was brought here and found to have acute anterior STEMI. He is a DO NOT RESUSCITATE. And they discussed about going to [facility] with possible stent. Then they elected to stay here and just keep him comfortable. says he did state his right chest hurt a little bit earlier this morning. The patient has been very comfortable. She states he cannot answer any questions. She states he had eye appointment 3 days ago. And when he came home he fell outside. After that he seemed to be doing well. - Discharge Data Discharge Date: 03/08/17 Discharge Disposition: Home, W Home Health Agency 06 Condition: Fair - Discharge Diagnosis/Problem(s) (1) STEMI (ST elevation myocardial infarction) SNOMED Code(s): 420658359 ICD Code: I21.3 - ST ELEVATION (STEMI) MYOCARDIAL INFARCTION OF UNSP SITE Status: Acute Current Visit: Yes Qualifiers: Involved coronary artery: unspecified coronary artery Qualified Code(s): I21.3 - ST elevation (STEMI) myocardial infarction of unspecified site (2) Palliative care status SNOMED Code(s): 598985119 ICD Code: Z51.5 - ENCOUNTER FOR PALLIATIVE CARE Status: Acute Current Visit: Yes (3) Seizure SNOMED Code(s): 85126080 ICD Code: R56.9 - UNSPECIFIED CONVULSIONS Status: Acute Current Visit: No Problem Details: Started Keppra 500mg po bid on 08/04/16. For outpt FU with his Neurologist. For EEG as an outpt. (4) Dementia SNOMED Code(s): 75363427 ICD Code: F03.90 - UNSPECIFIED DEMENTIA WITHOUT BEHAVIORAL DISTURBANCE Status: Chronic Current Visit: No Problem Details: Not on any medications. Qualifiers: Dementia type: Alzheimer's disease Alzheimer's disease onset: late-onset Dementia behavioral disturbance: without behavioral disturbance Qualified Code (s): G30.1 - Alzheimer's disease with late onset; F02.80 - Dementia in other diseases classified elsewhere without behavioral disturbance (5) Type 2 diabetes mellitus SNOMED Code(s): 22904786 ICD Code: E11.9 - TYPE 2 DIABETES MELLITUS WITHOUT COMPLICATIONS Status: Chronic Current Visit: No Problem Details: HbA1C was 9.1% on 08/04/16. Continue Insulin Aspart pre-meals and Detemir. Continue diabetic diet. Qualifiers: Diabetes mellitus complication status: without complication Diabetes mellitus detention insulin use: with termite treater use Qualified Code(s): E11.9 - Type 2 diabetes mellitus without complications; Z79.4 - termite control service representative (current) use of insulin - Patient Summary/Data Consults: Consultations 03/04/17 15:32 OT Evaluation and Treatment [CONS] Routine Please Evaluate and Treat. OT Reason for Consult: ADL's This query below is only for informational purposes and is not editable. PT Evaluation and Treatment [CONS] Routine Please Evaluate and Treat. PT Reason for Consult: Ambulation This query below is only for informational purposes and is not editable. 03/05/17 08:41 Consult to Hospice [CONS] Routine Comment: Physician Instructions: - Patient Instructions Diet: Diabetic Diet Activity: As Tolerated Driving: Do Not Drive Showering/Bathing: May Shower Notify Provider of: Increased Pain, Nausea and/or Vomiting Other/Special Instructions: 1. Recheck with Dr. Reid Pabon 7-10 days. 2. Home health for med education, management, home safety, health teaching. - Discharge Plan Prescriptions/Med Rec: Metoprolol Tartrate [Lopressor] 25 mg PO Q12H #60 tablet Home Medications: Home Meds Cholecalciferol (Vitamin D3) [Vitamin D3] 2,000 units PO DAILY 08/02/16 [History ] Insulin Aspart [NovoLOG] 8 units SQ TIDAC 08/02/16 [History] Insulin Glarg,Human.Rec.Analog [Lantus Solostar] 25 units SQ BEDTIME 08/02/16 [ History] Latanoprost [Xalatan 0.005% Ophth Soln] 1 drop EYEBOTH BEDTIME 08/02/16 [History ] Losartan Potassium [Cozaar] 100 mg PO DAILY 08/02/16 [History] Erythromycin Base [Erythromycin 0.5% Ophth Oint] 1 applic EYEBOTH BEDTIME [History] levETIRAcetam [Keppra] 500 mg PO BID #60 tablet 08/07/16 [Rx] Clopidogrel Bisulfate [Clopidogrel] 75 mg PO DAILY 03/04/17 [History] Metoprolol Tartrate [Lopressor] 25 mg PO Q12H #60 tablet 03/08/17 [Rx] Forms: ED Department Discharge Referrals: PCP,Not In Area [Primary Care Provider] - - Patient Data Vitals - Most Recent: Last Vital Signs Temp 98.8 F 03/08/17 00:00 Pulse 70 03/08/17 00:00 Resp 18 03/08/17 00:00 BP 160/81 H 03/08/17 00:00 Pulse Ox 94 L 03/08/17 00:00 Weight - Most Recent: 186 lb 9.6 oz I&O - Last 24 hours: Intake & Output 03/07/17 03/08/17 03/08/17 22:59 06:59 14:59 Output Total 0 Balance 0 Lab Results - Last 24 hrs: Laboratory Results - last 24 hr 07/08/1203/07/17 03/08/17 Range/Units 08:18 16:12 06:08 POC Glucose 217 H 319 H D 253 H (80-116) mg/dL Med Orders - Current: Current Medications Cholecalciferol (Vitamin D3) 2,000 units PO DAILY [facility] Last Admin: 03/07/17 08:23 Dose: 2,000 units Clopidogrel Bisulfate (Plavix) 75 mg PO DAILY [facility] Last Admin: 03/07/17 08:23 Dose: 75 mg Enoxaparin Sodium (Lovenox) 40 mg SUBCUT DAILY [facility] Last Admin: 03/07/17 08:23 Dose: 40 mg Erythromycin (Erythromycin 0.5% Ophth Oint) 0 gm EYEBOTH BEDTIME [facility] Last Admin: 03/07/17 20:33 Dose: 1 applic Insulin Aspart (Novolog) 8 unit SUBCUT TIDMEALS [facility] Last Admin: 03/07/17 17:55 Dose: 8 units Insulin Detemir (Levemir) 25 unit SUBCUT BEDTIME [facility] Last Admin: 03/07/17 20:38 Dose: 25 units Latanoprost (Xalatan 0.005% Ophth Soln) 0 ml EYEBOTH BEDTIME [facility] Last Admin: 03/07/17 20:37 Dose: 1 drop Levetiracetam (Keppra) 500 mg PO BID [facility] Last Admin: 03/07/17 20:34 Dose: 500 mg Losartan Potassium (Cozaar) 100 mg PO DAILY [facility] Last Admin: 03/07/17 08:22 Dose: 100 mg Melatonin (Melatonin) 5 mg PO BEDTIME [facility] Last Admin: 03/07/17 20:37 Dose: 5 mg Metoprolol Tartrate (Lopressor) 25 mg PO Q12H [facility] Last Admin: 03/07/17 20:34 Dose: 25 mg Tramadol HCl (Ultram) 50 mg PO Q4H PRN PRN Reason: Pain Last Admin: 03/05/17 10:12 Dose: 50 mg Discontinued Medications Clopidogrel Bisulfate (Plavix) 300 mg PO ONETIME ONE Stop: 03/04/17 15:41 Last Admin: 03/04/17 16:34 Dose: 300 mg Lactated Ringer's (Ringers, Lactated) 1,000 mls @ 75 mls/hr IV ASDIRECTED [facility] Last Admin: 03/05/17 22:16 Dose: 75 mls/hr Insulin Aspart (Novolog) 0 unit SUBCUT TIDMEALS [facility] PRN Reason: Protocol Last Admin: 03/07/17 08:26 Dose: 4 units Insulin Aspart (Novolog) 8 unit SUBCUT TIDAC [facility] Last Admin: 03/05/17 12:46 Dose: Not Given Isosorbide Mononitrate (Imdur) 30 mg PO DAILY [facility] Last Admin: 03/07/17 08:22 Dose: 30 mg Latanoprost (Xalatan 0.005% Ophth Soln) 0 ml EYEBOTH BEDTIME [facility] Last Admin: 03/04/17 21:14 Dose: 1 drop Lorazepam (Ativan) 0.5 mg IVPUSH Q2H PRN PRN Reason: Allergies Last Admin: 03/05/17 01:47 Dose: 0.5 mg Melatonin (Melatonin) 6 mg PO BEDTIME [facility] Melatonin (Melatonin) 9 mg PO BEDTIME [facility] Last Admin: 03/06/17 21:28 Dose: 9 mg Metoprolol Tartrate (Lopressor) 12.5 mg PO Q12H [facility] Last Admin: 03/07/17 09:36 Dose: Not Given Mirtazapine (Remeron) 7.5 mg PO BEDTIME PRN PRN Reason: Insomnia Morphine Sulfate (Morphine) 2 mg IVPUSH Q2H PRN PRN Reason: Pain (severe 7-10) Last Admin: 03/05/17 07:56 Dose: 2 mg Nitroglycerin (Nitrostat) 0.4 mg SL Q5M PRN PRN Reason: Chest Pain Stop: 03/04/17 15:51 Ondansetron HCl (Zofran Odt) 4 mg PO Q4H PRN PRN Reason: nausea, able to take PO Sodium Chloride (Saline Flush) 10 ml FLUSH ASDIRECTED PRN PRN Reason: Keep Vein Open Sodium Chloride ([place] 128 5% Ophth Soln) 0 ml EYEBOTH TID [facility] Last Admin: 03/05/17 09:57 Dose: Not Given Spironolactone (Aldactone) 25 mg PO DAILY [facility] *Q Meaningful Use (DIS) - VTE *Q VTE Criteria *Q: - Stroke *Q Stroke Criteria *Q: - AMI *Q AMI Criteria *Q:
[2017-03-08] MEDS: Insulin Aspart 100 Units/ML 3 ML Pen SUBCUT SCH ×2 (08:16→12:29)
[2017-03-08 09:09] VITALS: BP 147/76
[2017-03-08] MEDS: Losartan 100 MG Tab PO SCH (09:32)
[2017-03-08] MEDS: Enoxaparin 40 MG/0.4 ML Syringe SUBCUT SCH (09:32)
[2017-03-08] MEDS: levETIRAcetam 500 MG Tab PO SCH (09:32)
[2017-03-08] MEDS: Metoprolol Tartrate 25 MG Tab PO SCH (09:32)
[2017-03-08] MEDS: Clopidogrel 75 MG Tab PO SCH (09:33)
[2017-03-08] MEDS: Cholecalciferol (Vitamin D3) 1,000 Unit Tab PO SCH (09:33)
--- NOTE | 2017-03-09 08:51 | ER ---
DATE SEEN: 03/04/2017 TIME SEEN: The patient was seen at 1220 hours. CHIEF COMPLAINT: Slid to the floor and could not get him up off the floor. Paramedics transferred to the hospital. HISTORY OF PRESENT ILLNESS: This 76-year-old man with dense dementia known to have difficulty walking on his right foot because of previous left CVA. He has had many CVAs in the past. Last CVA was 10/2015. Today the patient complained of right hip pain, and with movement he had pain. Previously, was seen by Dr. Clayton, his mainstreaming facilitator in [place]. 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 He apparently has been able to walk until 2 weeks ago. Had been working with physical therapy. Several days ago, he was able to walk. He has been sleepy more recently, approximately 16 hours a day. More recently, he has had increasing difficulty walking. He uses a walker or a wheelchair, but he has been able to get up and move around. Today, he had to get up to go to the bathroom, he had difficulty. She sat him on the side of the bed getting ready to use a walker or a wheelchair to get into the bathroom and he slipped off the bed onto the floor. It took 3 neighbors to try to help. He has a right knee abrasion. She is concerned he might have a right hip fracture or a new stroke. REVIEW OF SYSTEMS: NEURO: He sleeps a lot. He is either in bed or recliner. He is on Plavix to prevent any potential clots. CARDIORESPIRATORY: Denies chest pain, irregular heartbeat, shortness of breath. GI: Had two episodes of diarrhea. No recent antibiotics. Last antibiotics July 2016. He has had problems with incontinence. They have used a catheter in the past when he was hospitalized, but he pulled it out and he has always pulled out all his IVs. He had previous hospital admissions on 01/2016. He was on the floor, same thing, slipped to the floor and was unable to get up. He was then transferred to [facility] in [place]. He then came home and his is now caring for him at home. He has received physical therapy for the last month in [place] and his doctor, Dr. Luis, Internal Medicine in [place], has ordered this. The patient notes that he is less talkative, and is eating less, but has not lost weight. SOCIAL HISTORY: . Several children. He worked in [place] for several years and apparently was in [place] for a time or other unusual disasters, in [place] and [facility]. PAST MEDICAL HISTORY: Significant for hypertension, diabetes, dementia, CVA 10/27/2015 with right leg weakness. PHYSICAL EXAMINATION: VITAL SIGNS: Blood pressure 135/74, heart rate 84, respirations 20, oxygen saturation 94%, temperature is 37.3 degrees centigrade. GENERAL: Alert man, who is very docile, looks younger than his age, but cannot answer questions. He is oriented only x1. Mini cognitive exam: Severe dementia, cannot answer questions with three objects and could not draw a clock. HEENT: PERRLA intact. Retina normal. EOMs normal. No nystagmus. Pharynx without abnormality. Gag in place. Very slight right facial droop, trace facial droop. NECK: No bruits. HEART: S1, S2. There is no irregular rhythm. No murmur. ABDOMEN: Soft. No guarding. No abdominal discomfort. EXTREMITIES: Lower extremities without pain or discomfort. He has superficial abrasion on right knee, greater than left knee without effusion. No collateral ligament, or AP instability. The patient denies pain in his knees or chest or pain in his legs. Internal and external rotation, right hip is without pain, although marked limitation, mostly secondary is contracture. No pedal edema. Dorsalis pedis, posterior tibialis, and also radial pulses intact and normal. IMAGING: CT scan of the head, no acute findings to suggest CVA. He has chronic extensive microvascular changes. LABORATORY FINDINGS: Troponin 18.25. C-reactive protein 2.6, sodium 138, potassium 3.8, chloride 104, CO2 of 26, BUN 22, creatinine 0.8. BUN and creatinine ratio 27.5, reflecting dehydration, and diabetes reflected by 226 glucose. White count 19965, PMNs 81, lymphocytes 10. ASSESSMENT: 1. EKG marked ST elevation anterior precordium, old inferior myocardial infarction, and acute new anterior STEMI. The patient's decided, she did not want to have him transferred to [place], have further evaluation because of his DNR and DNI status and his profound CVA status. But after the hospitalist spoke to him at 0205 hours, I was notified that the family did decide they wanted to go to [place]. felt she did not want to go, but when she asked him, he said yes. I think he is not capable of making decisions, and does not appreciate the significance of his decision. I did not try to dissuade the family from transfer to [place]. 2. Extensive dementia. 3. Mini cog, is very abnormal. 4. Diabetes with mild hyperglycemia. 5. Mild leukocytosis with neutrophilia. 6. Increased QT 575. 7. Status post previous T and A, and appendectomy. 8. Family history of mother had cancer of the bone, blood cancer, and father of heart failure. Mother and sister have had multiple surgeries. 9. Chronic obstructive pulmonary disease. 10. 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 11. Mild dehydration. 12. Previous history of hospitalization with pulling out Acevedo catheter and also IVs presently. He is docile and does not have this problem. 13. Two episodes of diarrhea yesterday, which were "bad". 14. Right hip pain without fracture and bilateral knee abrasions without fracture, but mild soft tissue trauma. 15. Status post previous 10/27/2015 left cerebrovascular accident. 16. Severe dementia. PLANS: Transfer to [place] per arrangements made at the request of family. /[id number] [address]/INES
== END 2017-03-08 13:50 | disposition home health service (06) | DRG 282 ==
LOC: FB.ED 12:29 → FB.MS 13:59 → UNDOADMIN 13:59 → FB.MS 15:37 → UNDODISIN 03-08 13:50
PROVIDERS: ADMIT Family Medicine; ATTEND Family Medicine
DX: I21.3 ST elevation (STEMI) myocardial infarction of unspecified site (principal); I10 Essential (primary) hypertension; E11.9 Type 2 diabetes mellitus without complications; Z66 Do not resuscitate; Z51.5 Encounter for palliative care; G30.1 Alzheimer's disease with late onset; F02.80 Dementia in other diseases classified elsewhere, unspecified severity, without behavioral disturbance, psychotic disturbance, mood disturbance, and anxiety; I69.941 Monoplegia of lower limb following unspecified cerebrovascular disease affecting right dominant side; Z87.891 Personal history of nicotine dependence; R56.9 Unspecified convulsions; Z79.4 Long term (current) use of insulin; W01.0XXA Fall on same level from slipping, tripping and stumbling without subsequent striking against object, initial encounter; Y92.003 Bedroom of unspecified non-institutional (private) residence as the place of occurrence of the external cause; Z77.29 Contact with and (suspected) exposure to other hazardous substances; M25.551 Pain in right hip; S80.212A Abrasion, left knee, initial encounter; S80.211A Abrasion, right knee, initial encounter; R53.1 Weakness; H54.41 Blindness, right eye, normal vision left eye; Z88.6 Allergy status to analgesic agent; Z88.8 Allergy status to other drugs, medicaments and biological substances; Z91.048 Other nonmedicinal substance allergy status
CPT/HCPCS: 36415; 70450; 73562-RT; 80053; 81001; 82962; 84484; 85025; 86140; 87040; 93005; 97116-GP; 97162-GP; 97165-GO; 97530-GO-KX; 97530-GP; 97535-GO; 99284; 99285; A9270-GY; J1650; J2060; J2270; J7120